=== PATIENT | male | born 1995 | race Caucasian/White ===

== ENCOUNTER 2017-07-31 12:15 | Emergency (ER) | payer BC | END 2017-07-31 12:56 | disposition home or self-care (01) | LOC: NAV ERS 12:15 | DX: J02.9 Acute pharyngitis, unspecified (principal); F17.210 Nicotine dependence, cigarettes, uncomplicated; Z79.899 Other long term (current) drug therapy | CPT/HCPCS: 99283 ==

== ENCOUNTER 2021-10-18 11:11 | Emergency (ER) | payer BC, SELFPAY ==
[2021-10-18 12:05] LABS: #Basophils 0.1 thou/uL (0.0-0.2); #Eosinphils 0.2 thou/uL (0.0-0.7); #Lymphocytes 1.4 thou/uL (1.20-3.40); #Monocytes 0.5 thou/uL (0.11-0.59); %Basophils 1.5 % (0.0-1.0); %Eosinophils 3.5 % (0.0-10.0); %Lymphocytes 22.4 % (21.0-51.0); %Monocytes 7.9 % (0.0-10.0); %Neutrophils 64.8 % (42.0-75.0); Hemoglobin 12.7 g/dL (14.0-18.0); Mean Corpuscular HGB CONC 30.9 g/dL (32.0-36.0); Mean Corpuscular Hemoglobin 26.9 pg (27.0-31.0); Mean Platelet Volume 8.6 fL (7.4-10.4); Platelet Count 245 thou/uL (130-400); RBC Distribution Width 11.9 % (11.5-14.5); Red Blood Cell (RBC) Count 4.73 mill/uL (4.70-6.10); White Blood Cell (WBC) Count 6.2 thou/uL (4.8-10.8)
[2021-10-18 12:26] LABS: Anion Gap 18 mmol/L (10-20); BUN (Urea Nitrogen) 10 mg/dL (8.9-20.6); Carbon Dioxide 19 mmol/L (22-29); Chloride 106 mmol/L (98-107); Sodium 139 mmol/L (136-145)
[2021-10-18 12:27] LABS: ALT (SGPT) 15 U/L (8-55); AST (SGOT) 19 U/L (5-34); Albumin 4.4 g/dL (3.5-5.0); Alkaline Phosphatase 62 U/L (40-110); Bilirubin, Total 3.6 mg/dL (0.2-1.2); Calc. Creatinine Clearance 0 mL/min (70-130); Calcium 9.5 mg/dL (7.8-10.44); Globulin 2.5 g/dL (2.4-3.5); Glucose 83 mg/dL (70-105); Protein, Total 6.9 g/dL (6.0-8.3)
[2021-10-18] MEDS ORDERED: Aspirin Chewable 81 MG TAB ONE (12:27)
[2021-10-18 12:31] LABS: Amphetamine Not Detected (NotDetected); Barbiturates Screen Not Detected (NotDetected); Benzodiazepine Screen Not Detected (NotDetected); Cocaine Metabolite Screen Not Detected (NotDetected); Medtox Control Line Valid? VALID (VALID); Methadone Not Detected (NotDetected); Methamphetamine Not Detected (NotDetected); Opiate Screen Not Detected (NotDetected); Oxycodone Screen Not Detected (NotDetected); Phencyclidine (PCP) Not Detected (NotDetected); THC/Cannabinoid Screen Detected (NotDetected); Tricyclic Screen Not Detected (NotDetected)
== END 2021-10-18 13:25 | disposition home or self-care (01) ==
LOC: NAV ERS 11:11
DX: F43.20 Adjustment disorder, unspecified (principal); R07.89 Other chest pain; F17.210 Nicotine dependence, cigarettes, uncomplicated
CPT/HCPCS: 71045; 80053; 80306; 84484; 85025; 93005; 94760

== ENCOUNTER 2021-12-23 08:15 | Emergency (ER) | payer SELFPAY | END 2021-12-23 08:46 | disposition home or self-care (01) | LOC: NAV ERS 08:15 | DX: J36 Peritonsillar abscess (principal); F17.220 Nicotine dependence, chewing tobacco, uncomplicated | CPT/HCPCS: 87081; 87430; 99283 ==